=== PATIENT | female | born 1985 | race Caucasian/White ===

== ENCOUNTER 2016-12-21 10:53 | Emergency (ER) | payer OTHER ==
[~2016-12-21] VITALS: Ht 170.2 cm; Wt 76.0 kg
[~2016-12-21 10:53] MED LIST: CEPH-443 PO; CIPR500T4 PO; DICY10CA60 PO; ONDA4TAB35 PO
[2016-12-21 11:00] VITALS: Ht 170.2 cm; Wt 76.0 kg
[2016-12-21] MEDS ORDERED: ONDANSETRON (ODT) 4 MG TAB ODT STA (11:55)
--- NOTE | 2016-12-21 12:45 | RADRPT ---
PROCEDURE: XR Chest. CLINICAL INDICATION: Cough TECHNIQUE: Chest PA. COMPARISON: No comparison available. FINDINGS: The mediastinal structures are unremarkable. The heart is normal in size and configuration. The pu lmonary vascularity is normal. The lung peacock are unremarkable. No consolidation is identified. The pleural spaces are unremarkable. The axial skeleton is unremarkable. IMPRESSION: No active intrathoracic disease. RPTAT: [facility] .Alfredito Maldonado MD, MD Date Time Electronically viewed and signed by .Alfredito Maldonado MD, on 12/21/2016 12:45 .B/
[2016-12-21 13:47] LABS: URINE BLOOD (Dip) POC Negative (NEGATIVE)
--- NOTE | 2016-12-21 13:56 | ERD ---
ER Documentation Chief Complaint Date/Time DATE: 12/21/16 TIME: 13:52 Chief Complaint Pt with sore throat and cough X 1 week. Vomited last night. No fever today. HPI This is a 31-year-old female presenting to the emergency department for sore throat,cough and posttussive emesis 1 week. Patient states she has had tactile fevers at home. Patient did not check her temperature. Has had productive cough with clear sputum and episodes of posttussive emesis. Patient took NyQuil last night. Denies difficulty swallowing or drooling. No shortness of breath, difficulty breathing, wheezing or chest pain. No sick contacts. ROS All systems reviewed and are negative except as per history of present illness. Medications Home Meds Active Scripts Guaifenesin/Codeine Phosphate (CHERATUSSIN AC SYRUP) 118 Ml Liquid, 10 ML PO Q6H Y for SORE THROAT, #118 ML Prov:MARIAMA GOMEZ NP 12/21/16 Ciprofloxacin Hcl* (Ciprofloxacin Hcl*) 500 Mg Tablet, 500 MG PO BID for 7 Days , TAB Prov:GERALD LUIS PA-C 12/19/15 Ondansetron Hcl* (Zofran* ODT) 4 mg -ODT Tab.disper, 4 MG PO Q6 Y for NAUSEA AND /OR VOMITING, #10 TAB Prov:MIGUELITO MILAN MD 08/05/15 Dicyclomine Hcl* (Bentyl*) 10 Mg Capsule, 10 MG PO QID Y for PAIN, #14 CAP Prov:MIGUELITO MILAN MD 08/05/15 Cephalexin* (Keflex*) 500 Mg Capsule, 500 MG PO BID for 7 Days, CAP Prov:MIGUELITO MILAN MD 08/05/15 Allergies Allergies: Coded Allergies: No Known Drug Allergy (Verified Allergy, Unknown, 08/05/15) PMhx/Soc Medical and Surgical Hx: pt denies Medical Hx, pt denies Surgical Hx History of Surgery: No Anesthesia Reaction: No Hx Neurological Disorder: No Hx Respiratory Disorders: No Hx Cardiac Disorders: No Hx Psychiatric Problems: No Hx Miscellaneous Medical Probl: No Hx Alcohol Use: No Hx Substance Use: No Hx Tobacco Use: No Smoking Status: Never smoker Physical Exam Vitals Vital Signs Date Time Temp Pulse Resp B/P Pulse Ox O2 Delivery O2 Flow Rate FiO2 12/21/16 14:03 77 18 128/74 99 Room Air 12/21/16 11:00 98.3 80 20 112/61 100 Physical Exam Const: No acute distress, alert Head: Atraumatic Eyes: Normal Conjunctiva ENT: Normal External Ears, Nose and Mouth. No erythema or exudate posterior pharynx. TMs normal bilaterally. Neck: Full range of motion..~ No meningismus. Resp: Clear to auscultation bilaterally. No wheezing, rhonchi or crackles. No stridor or labored breathing. No intercostal retractions Cardio: Regular rate and rhythm, no murmurs Abd: Soft, non tender, non distended. Normal bowel sounds Skin: No petechiae or rashes Back: No midline or flank tenderness Ext: No cyanosis, or edema Neur: Awake and alert Psych: Normal Mood and Affect Results 24 hrs Laboratory Tests Test 12/21/16 13:47 Bedside Urine pH (LAB) 7.0 Bedside Urine Protein (LAB) Negative Bedside Urine Glucose (UA) Negative Bedside Urine Ketones (LAB) Negative Bedside Urine Blood Negative Bedside Urine Nitrite (LAB) Negative Bedside Urine Leukocyte Esterase (L Trace Current Medications Medications (Trade) Dose Ordered Sig/Christopher Route PRN Reason Start Time Stop Time Status Last Admin Dose Admin Ondansetron HCl (Zofran Odt) 4 mg ONCE STAT ODT 12/21/16 11:55 12/21/16 11:58 DC 12/21/16 12:01 Procedures/MDM ED COURSE: The patient was stable throughout ED course. I kept the patient and/or family informed of laboratory and diagnostic imaging results throughout the ED course. Laboratory Urine negative Microbiology Rapid strep negative Imaging Patient: YOLANDA CHENG : 1985 Age: 31 Sex: F MR #: [id number] DOS: 12/21/16 1155 Ordering MD: MARIAMA GOMEZ NP Location: [facility] Room/Bed: PROCEDURE: XR Chest. CLINICAL INDICATION: Cough TECHNIQUE: Chest PA. COMPARISON: No comparison available. FINDINGS: The mediastinal structures are unremarkable. The heart is normal in size and configuration. The pulmonary vascularity is normal. The lung peacock are unremarkable. No consolidation is identified. The pleural spaces are unremarkable. The axial skeleton is unremarkable. IMPRESSION: No active intrathoracic disease. MDM: 31-year-old female presents emergency department for sore throat, cough and posttussive emesis 1 week. Patient states she had intermittent episodes of posttussive emesis. Had one episode last night. Had tactile fevers at home. Afebrile upon arrival today. Cough is productive with clear sputum. No difficulty swallowing or drooling. No signs or symptoms of respiratory distress. Oxygen saturation 100% on room air. Patient is alert, calm and cooperative throughout ED visit. Appears in no acute distress. Patient is talking in complete sentences. No stridor or labored breathing. Rapid strep swab is negative. Chest x-ray reviewed by radiologist as no active intrathoracic disease. Urine test is negative. She given Zofran with p.o. challenge which was successful. Remains hemodynamically stable. Patient appears calm and comfortable for discharge home. Low suspicion for pneumonia, pleural effusion, pneumothorax, strep pharyngitis, epiglottitis and peritonsillar abscess. Patient likely has viral pharyngitis versus URI. Patient is appropriate for outpatient management will be given prescription for Cheratussin AC syrup. Instructed patient to follow-up with primary care provider in the next 2-3 days for reassessment and additional management. Return to ED for any high fever, chest pain, difficulty breathing, shortness breath, wheezing, vomiting, diarrhea, abdominal pain or any new or worsening symptoms. Patient verbalizes understanding. All questions answered at discharge. Departure Diagnosis: Primary Impression: Sore throat MARIAMA GOMEZ NP Dec 21, 2016 13:56
[2016-12-21] MEDS ORDERED: GUAI118L22 PO (13:57)
[2016-12-21 14:03] VITALS: BP 128/74; PULSE 77; RESP 18
== END 2016-12-21 14:04 | disposition home or self-care (01) ==
LOC: FTE 10:53
DX: J02.9 Acute pharyngitis, unspecified (principal); R11.10 Vomiting, unspecified
CPT/HCPCS: 71010; 81003; 87880; Z7502; Z7610

== ENCOUNTER 2017-06-26 22:19 | Emergency (ER) | payer OTHER ==
[~2017-06-26] VITALS: Ht 165.1 cm; Wt 77.5 kg
[~2017-06-26 22:19] MED LIST changes: +GUAI118L22 PO
[2017-06-26 22:22] VITALS: Ht 165.1 cm; Wt 77.5 kg
--- NOTE | 2017-06-27 00:57 | ERD ---
ER Documentation Chief Complaint Date/Time DATE: 06/27/17 TIME: 00:56 Chief Complaint PAin with urination for a week HPI This 41-year-old female presents to emergency department with complaint of dysuria, urgency and cramping with void for the last 5 days, patient reports strong smelling urine denies hematuria, reports slight irregular periods, has IUD 12 months. Denies any vaginal discharge. ROS All systems reviewed and are negative except as per history of present illness. Medications Home Meds Active Scripts Guaifenesin/Codeine Phosphate (CHERATUSSIN AC SYRUP) 118 Ml Liquid, 10 ML PO Q6H Y for SORE THROAT, #118 ML Prov:MARIAMA GOMEZ NP 12/21/16 Ciprofloxacin Hcl* (Ciprofloxacin Hcl*) 500 Mg Tablet, 500 MG PO BID for 7 Days , TAB Prov:GERALD LUIS PA-C 12/19/15 Ondansetron Hcl* (Zofran* ODT) 4 mg -ODT Tab.disper, 4 MG PO Q6 Y for NAUSEA AND /OR VOMITING, #10 TAB Prov:MIGUELITO MILAN MD 08/05/15 Dicyclomine Hcl* (Bentyl*) 10 Mg Capsule, 10 MG PO QID Y for PAIN, #14 CAP Prov:MIGUELITO MILAN MD 08/05/15 Cephalexin* (Keflex*) 500 Mg Capsule, 500 MG PO BID for 7 Days, CAP Prov:MIGUELITO MILAN MD 08/05/15 Allergies Allergies: Coded Allergies: No Known Drug Allergy (Verified Allergy, Unknown, 08/05/15) PMhx/Soc Medical and Surgical Hx: pt denies Medical Hx, pt denies Surgical Hx History of Surgery: No Anesthesia Reaction: No Hx Neurological Disorder: No Hx Respiratory Disorders: No Hx Cardiac Disorders: No Hx Psychiatric Problems: No Hx Miscellaneous Medical Probl: No Hx Alcohol Use: No Hx Substance Use: No Hx Tobacco Use: No Smoking Status: Never smoker Physical Exam Vitals Vital Signs Date Time Temp Pulse Resp B/P Pulse Ox O2 Delivery O2 Flow Rate FiO2 06/26/17 22:22 98.3 72 16 110/71 100 Vitals stable, triage notes reviewed Physical Exam Const: Well-nourished well-hydrated well-appearing 31-year-old female in no acute distress Head: Eyes: ENT: Neck: Resp: Cardio: Abd: Soft, non tender, non distended. Normal bowel sounds negative CVA tenderness Skin: Back: No midline or flank tenderness Ext: Neur: Awake and alert Psych: Normal Mood and Affect Results 24 hrs Laboratory Tests Test 06/27/17 01:00 Urine Color YELLOW Urine Clarity CLOUDY Urine pH 7.0 Urine Specific [place] 1.008 Urine Ketones NEGATIVEmg/dL Urine Nitrite NEGATIVEmg/dL Urine Bilirubin NEGATIVEmg/dL Urine Urobilinogen NEGATIVEmg/dL Urine Leukocyte Esterase 3+Jhoan/ul Urine Microscopic RBC 0/HPF Urine Microscopic WBC > 182/HPF Urine Bacteria FEW/HPF Urine Yeast (Budding) MANY/HPF Urine Hemoglobin 2+mg/dL Urine Glucose NEGATIVEmg/dL Urine Total Protein 1+mg/dl Procedures/MDM This pleasant 31-year-old female presents to emergency department for evaluation of dysuria, strong smelling urine, urgency and frequency of urination 7 days. Patient denies any vaginal discharge, hematuria, or history of nephrolithiasis. Emergency room course includes history and physical exam, urinalysis, positive for evidence of infection, microscopic hematuria, leukocytosis, negative nitrates. Plan to treat patient with Macrobid 100 mg twice daily 7 days, increase fluids, no sexual intercourse while on antibiotic , follow-up with primary physician if symptoms fail to improve as anticipated Patient is stable with no new complaints during ER course, clinically there is no current evidence to suggest acute abdomen, nephrolithiasis, pyelonephritis, urosepsis or any other emergent condition appearing to require further evaluation or hospitalization. I feel the patient is stable for discharge at this time. I have discussed results, examination findings, the treatment plan with the patient and family present prior to discharge. Indications for emergent reevaluation, side effects of medication were also discussed. All questions were answered. Patient verbalizes understanding and agrees with plan of care. Departure Diagnosis: Primary Impression: UTI (urinary tract infection) Urinary tract infection type: site unspecified Hematuria presence: without hematuria Qualified Code: N39.0 - Urinary tract infection without hematuria, site unspecified Condition: Good Patient Instructions: Understanding Urinary Tract Infections (UTIs) [facility] Additional Instructions: Thank you for for coming to [facility] for your care today. Please ask your nurse or provider if you have questions about your care today and do not leave until all your questions have been answered. Please use any medications given as directed and follow-up with your doctor (or the doctor you were referred to) in the next 2-3 days. If you do not have a primary care doctor you may follow up at the community [facility] - [facility] (listed below). You may also use motrin and tylenol as needed for fever and/or pain unless instructed otherwise by your provider or nurse. Indications for more urgent follow-up have been discussed, but you may return to the Emergency Department at ANY time for any worrisome or worsening symptoms. If you have abdominal pain, please know that no test or exam you received is perfect and you should follow up within 8 hours for continued pain. If you had any imaging studies today, such as an X-Ray or CT Scan, these studies will be reviewed later by a radiologist. You will be called if there are important findings that were not identified today, so make sure the contact information you provided at registration is correct. If you received any narcotic pain control medicine today, such as Vicodin, Morphine or Dilaudid, your coordination and judgment may be affected for a number of hours. Please do not drive or operate heavy machinery, and you may want someone to assist you at home. If you were given a prescription for narcotic medication, be aware that it is very addictive- use sparingly and only if necessary. KERRIE ADAMSON Jun 27, 2017 00:57
[2017-06-27 01:36] LABS: ADD UMIC YES; UR ASCORBIC ACID NEGATIVE (NEGATIVE); UR BACTERIA FEW /HPF (NONE SEEN); UR BILIRUBIN (Dip) NEGATIVE (NEGATIVE); UR BLOOD (Dip) 2+ mg/dL (NEGATIVE); UR BUDDING YEAST MANY /HPF (NONE SEEN); UR CLARITY CLOUDY (CLEAR); UR COLOR YELLOW (YELLOW); UR GLUCOSE (Dip) NEGATIVE (NEGATIVE); UR KETONES (Dip) NEGATIVE (NEGATIVE); UR LEUKOCYTE ESTERASE (Dip) 3+ Leu/ul (NEGATIVE); UR NITRITE (Dip) NEGATIVE (NEGATIVE); UR NONSQUAMOUS EPITHELIAL CELL 1 /HPF (NONE SEEN); UR RBC 0 /HPF (0-5); UR SPECIFIC GRAVITY (Dip) 1.008 (1.003-1.030); UR TOTAL PROTEIN (Dip) 1+ mg/dl (NEGATIVE); UR UROBILINOGEN (Dip) NEGATIVE (NEGATIVE)
[2017-06-27] MEDS ORDERED: NITR-58 PO ×2 (02:32)
== END 2017-06-27 03:47 | disposition left against medical advice (07) ==
LOC: FTE 22:19
DX: N39.0 Urinary tract infection, site not specified (principal)
CPT/HCPCS: 81001; Z7502; 99283

== ENCOUNTER 2018-08-23 19:25 | Emergency (ER) | END 2018-08-23 23:12 | disposition home or self-care (01) ==

== ENCOUNTER 2019-05-14 09:30 | Inpatient (IN) | payer OTHER ==
[~2019-05-14] VITALS: Ht 160 cm; Wt 84.6 kg
[~2019-05-14 09:30] MED LIST changes: +ACET325T33 PO; +ACET500C5 PO; +CALC600T5 PO; +DICY10CA40 PO; -DICY10CA60 PO; +IBUP-1542 PO; +IBUP800T48 PO; +NITR-58 PO; +ONDA4TAB14 PO; +PHEN-538 PO; +PNV11TAB PO
[2019-05-14] MEDS ORDERED: LACTATED RINGER'S 1,000 ML IV PRN (09:54)
[2019-05-14] MEDS ORDERED: LACTATED RINGER'S 1,000 ML IV SCH ×2 (09:54→22:41)
[2019-05-14] MEDS ORDERED: METHYLERGONOVINE 0.2 MG INJ IM PRN ×2 (10:00→23:00)
[2019-05-14] MEDS ORDERED: LIDOCAINE 1% (MPF) 30 ML INJ INJ PRN (10:00)
[2019-05-14] MEDS ORDERED: CARBOPROST 250 MCG INJ IM PRN ×2 (10:00→23:00)
[2019-05-14] MEDS ORDERED: MINERAL OIL LIGHT 10 ML VIAL TOP ONE (10:00)
[2019-05-14] MEDS ORDERED: OXYTOCIN 30 UNITS/LR 500 ML IV SCH ×3 (10:00)
[2019-05-14] MEDS ORDERED: IBUPROFEN 600 MG TAB PO PRN (10:00)
[2019-05-14] MEDS ORDERED: OXYTOCIN 30 UNITS/LR 500 ML IV PRN ×2 (10:00→23:00)
[2019-05-14] MEDS ORDERED: MISOPROSTOL 200 MCG TAB PR PRN ×2 (10:00→23:00)
[2019-05-14 10:06] VITALS: Ht 160 cm; Wt 84.6 kg
[2019-05-14 10:59] VITALS: BP 111/62; PULSE 93; RESP 18
[2019-05-14] MEDS: MISOPROSTOL 50 MCG CAPSULE VAG SCH ×2 (13:01→17:00)
[2019-05-14] MEDS ORDERED: CEFAZOLIN 2 GM/50 ML (PMX) 50 ML IVPB SCH (18:30)
[2019-05-14] MEDS ORDERED: morphine SULFATE/PF (10 MG/10 ML) INJ ONE (18:46)
[2019-05-14] MEDS ORDERED: OXYTOCIN 10 UNIT INJ ONE (18:46)
[2019-05-14] MEDS ORDERED: ONDANSETRON 4 MG INJ ONE (18:46)
[2019-05-14] MEDS ORDERED: OXYTOCIN 30 UNITS/LR 500 ML BAG IV ONE (19:00)
[2019-05-14] MEDS ORDERED: PHENYLephrine 10 MG INJ ONE (19:06)
[2019-05-14] MEDS ORDERED: ACETAMINOPHEN 500 MG TAB PO STA (19:56)
[2019-05-14] MEDS ORDERED: KETOROLAC 30 MG INJ IV STA (19:56)
[2019-05-14] MEDS ORDERED: AZITHROMYCIN 500MG/NS (PMX) 250 ML IVPB ONE (20:00)
[2019-05-14] MEDS ORDERED: NALOXONE (0.4 MG/ML) INJ IV PRN (20:30)
[2019-05-14] MEDS ORDERED: morphine 2 MG INJ IV PRN (20:30)
[2019-05-14] MEDS ORDERED: ONDANSETRON 4 MG INJ IV PRN (20:30)
[2019-05-14] MEDS: DIPHENHYDRAMINE 50 MG INJ IV PRN (21:29)
[2019-05-14 22:45] VITALS: BP 110/67; PULSE 76; RESP 19
[2019-05-14] MEDS ORDERED: LANOLIN HPA 1 PKT TOP PRN (23:00)
[2019-05-14] MEDS ORDERED: HYDROCODONE/APAP (5/325) TAB PO PRN (23:00)
[2019-05-14] MEDS ORDERED: NA PHOSPHATE/BIPHOS 133 ML ENEMA PR PRN (23:00)
[2019-05-14] MEDS ORDERED: OXYCODONE/ACETAMINOPHEN (5/325) TAB PO PRN (23:00)
[2019-05-15] VITALS: BP 90/58; PULSE 65; RESP 19
[2019-05-15] MEDS: CLINDAMYCIN 300 MG CAP PO SCH ×5 (00:06→23:59)
[2019-05-15] MEDS: CEFAZOLIN 2 GM/50 ML (PMX) 50 ML IVPB SCH ×3 (01:06→14:51)
[2019-05-15 03:15] VITALS: BP 90/50; PULSE 68; RESP 18
[2019-05-15] MEDS: KETOROLAC 30 MG INJ IV PRN ×2 (05:47→14:51)
[2019-05-15] MEDS: DIPHENHYDRAMINE 50 MG INJ IV PRN (07:47)
[2019-05-15 08:30] VITALS: BP 106/56; PULSE 79; RESP 18
[2019-05-15] MEDS: SENNA/DOCUSATE NA (8.6MG/50MG) TAB PO SCH ×2 (09:50→22:03)
[2019-05-15] MEDS ORDERED: BISACODYL 10 MG SUPP PR ONE (10:00)
[2019-05-15 16:00] VITALS: BP 101/55; PULSE 75; RESP 18
[2019-05-15 20:02] VITALS: BP 96/55; PULSE 88; RESP 18
[2019-05-15] MEDS: IBUPROFEN 800 MG TAB PO SCH (22:03)
[2019-05-16 03:30] VITALS: BP 104/55; PULSE 62; RESP 18
[2019-05-16] MEDS: IBUPROFEN 800 MG TAB PO SCH ×3 (05:52→21:38)
[2019-05-16] MEDS: CLINDAMYCIN 300 MG CAP PO SCH ×4 (05:52→23:42)
[2019-05-16 07:00] VITALS: BP 99/54; PULSE 71; RESP 18
[2019-05-16] MEDS: SENNA/DOCUSATE NA (8.6MG/50MG) TAB PO SCH ×2 (08:59→21:38)
[2019-05-16 15:49] VITALS: BP 109/65; PULSE 85; RESP 18
[2019-05-16 19:30] VITALS: BP 101/59; PULSE 88; RESP 18
[2019-05-17] MEDS ORDERED: ACETAMINOPHEN 325 MG TAB PO PRN (00:30)
[2019-05-17 04:00] VITALS: BP 113/70; RESP 18
[2019-05-17] MEDS: CLINDAMYCIN 300 MG CAP PO SCH ×2 (05:36→12:02)
[2019-05-17] MEDS: IBUPROFEN 800 MG TAB PO SCH ×2 (05:36→14:52)
[2019-05-17 08:00] VITALS: BP 95/60; PULSE 72; RESP 17
[2019-05-17 08:15] VITALS: PULSE 130
[2019-05-17] MEDS ORDERED: DIPHTH/TET/ACEL PERTUSS (ADULT) 0.5 ML VIAL IM* ONE (09:00)
[2019-05-17] MEDS ORDERED: MEASLES,MUMPS,RUBELLA VACCINE INJ SC* ONE (09:00)
[2019-05-17] MEDS: SENNA/DOCUSATE NA (8.6MG/50MG) TAB PO SCH (10:03)
== END 2019-05-17 17:45 | disposition home or self-care (01) | DRG 785 ==
LOC: L-D 09:47 → MS1 22:33
PROVIDERS: ADMIT Obstetrics & Gynecology; ATTEND Obstetrics & Gynecology
PROC: 10D00Z1 Extraction of Products of Conception, Low, Open Approach (ICD-10-PCS; principal; 2019-05-14)
PROC: 0UB70ZZ Excision of Bilateral Fallopian Tubes, Open Approach (ICD-10-PCS; 2019-05-14)
DX: O36.63X0 Maternal care for excessive fetal growth, third trimester, not applicable or unspecified (principal); O99.214 Obesity complicating childbirth; E66.9 Obesity, unspecified; Z3A.39 39 weeks gestation of pregnancy; Z37.0 Single live birth; Z30.2 Encounter for sterilization; Z23 Encounter for immunization
CPT/HCPCS: 76815; 81001; 85025; 85610; 85730; 86592; 86850; 86900; 86901; 87086; 87340; 88302; 90715; 99464; J0456; J0690; J1200; J1885; J2274; J2370; J2405; J2590; J7120